=== PATIENT | female | born 1960 | race Caucasian/White ===

== ENCOUNTER 2018-05-29 08:17 | Outpatient (CLI) | payer BC ==
[2018-05-29 09:31] LABS: #Eosinphils 0.3 thou/uL (0.0-0.7); #Lymphocytes 1.7 thou/uL (1.20-3.40); #Monocytes 0.4 thou/uL (0.11-0.59); #Neutrophils 2.5 thou/uL (1.40-6.50); %Basophils 0.8 % (0.0-1.0); %Eosinophils 6.2 % (0.0-10.0); %Lymphocytes 35.5 % (21.0-51.0); %Monocytes 7.3 % (0.0-10.0); %Neutrophils 50.3 % (42.0-75.0); Hemoglobin 14.8 g/dL (12.0-16.0); Mean Corpuscular HGB CONC 32.5 g/dL (32.0-36.0); Mean Platelet Volume 7.8 fL (7.4-10.4); Platelet Count 215 thou/uL (130-400); RBC Distribution Width 10.9 % (11.5-14.5); Red Blood Cell (RBC) Count 4.49 mill/uL (4.20-5.40); White Blood Cell (WBC) Count 4.9 thou/uL (4.8-10.8)
== END 2018-05-29 08:18 | disposition home or self-care (01) ==
LOC: LABBT 08:17
PROVIDERS: ATTEND Orthopaedic Surgery
DX: Z01.818 Encounter for other preprocedural examination (principal); S83.241A Other tear of medial meniscus, current injury, right knee, initial encounter
CPT/HCPCS: 85025; 93005; 93010

== ENCOUNTER 2018-05-30 05:46 | Day surgery (SDC) | payer BC ==
--- NOTE | 2018-05-29 08:26 | HP ---
HISTORY OF PRESENT ILLNESS: The patient is a 58-year-old female with a several year history of diffi culty with her right knee which has become worse over the past several months. There has been no spe cific injury. She describes pain and intermittent popping. Her symptoms are worse with prolonged si tting and ambulation. She has had persistent symptoms despite rest, restriction of activities, use o f anti-inflammatory medications including naproxen and Meloxicam and a previous cortisone injection. PAST MEDICAL HISTORY: The patient is otherwise in good health, has no major medical problems. ALLERGIES: She has no known allergies. PHYSICAL EXAMINATION: GENERAL: Reveals a healthy female. HEENT: Unremarkable. NECK: Supple. CHEST: Clear. HEART: Regular rate and rhythm. ABDOMEN: Soft, nontender. PELVIC/RECTAL/BREAST: Exams are deferred. EXTREMITIES: Pertinent findings are related to the right knee. There is no definite effusion. Ther e is normal alignment. There is tenderness over the medial joint line. Range of motion is 0-135 deg shanelle. There is pain with attempted Koko's maneuver. There is no instability. Neurovascular exa m is intact. LABORATORY AND X-RAY FINDINGS: X-rays of the right knee reveal minimal degenerative changes. MRI sc an of the right knee reveals a complex tear of the posterior horn of the medial meniscus and degenera tive changes of the patella. IMPRESSION: Internal derangement of right knee with medial meniscal tear, possible component of dege nerative joint disease. PLAN: Arthroscopy right knee with possible medial meniscectomy and/or debridement and shaving. The nature of the surgery, length of recovery, and potential complications such as infection, loss of mot ion, incomplete relief, neurovascular injury, thromboembolic phenomena, possible post-traumatic degen erative arthritis, recurrent tear and need for additional treatment or repeat surgery have been discu ssed in detail.
[2018-05-29 08:28] VITALS: BMI 28.8
[2018-05-30] MEDS ORDERED: CEFAZOLIN/Water 2 GM/20 ML SYRINGE ONE (06:16)
[2018-05-30] MEDS ORDERED: Bupivacaine HCl 0.5%/Epinephrine 1:200,000/PF 30 ml Vial ONE (07:13)
[2018-05-30] MEDS ORDERED: Fentanyl 100 MCG/2 ML VIAL ONE (07:45)
[2018-05-30] MEDS ORDERED: HYDROcodone/Acetaminophen 5/325 mg Tablet ONE (09:03)
[2018-05-30] MEDS ORDERED: Morphine 2 MG/ML SYRINGE ONE (09:03)
--- NOTE | 2018-05-30 09:32 | OP ---
DATE OF PROCEDURE: 05/30/2018 SURGEON: Jean Montejo M.D. ANESTHESIA: General. PREOPERATIVE DIAGNOSIS: Medial meniscal tear and degenerative joint disease, right knee. POSTOPERATIVE DIAGNOSIS: Medial meniscal tear and degenerative joint disease, right knee, plus later al meniscal tear. PROCEDURE PERFORMED: Arthroscopy right knee with partial medial and lateral meniscectomies. OPERATIVE FINDINGS: Examination under anesthesia revealed the knee to be stable. At arthroscopy, th ere was moderate effusion. There was grade II and grade III changes of the central and lateral avila lar facet. No areas of exposed bone. Examination of the medial compartment revealed some diffuse gr camryn II changes and early grade III changes in the weightbearing surface of medial femoral condyle, bu t no areas of exposed bone. There was a complex tear of the posterior horn of the medial meniscus ex tending into the meniscal root. ACL was intact. There is some small area of grade 2 and 3 change wi th a late weightbearing surface of lateral femoral condyle and a small radial tear in the mid portion of the body of the lateral meniscus, but the bulk of the meniscus was intact. NARRATIVE REPORT: After satisfactory anesthesia was induced in supine position, the patient was plac ed in a leg meredith and prepped and draped in routine manner. Right leg was elevated, exsanguinated w ith an Esmarch bandage, and the tourniquet inflated to 300 mmHg. Jef arthroscope was introduced into the anterolateral portal, probe through inferomedial portal, and the inflow and outflow accompli shed through the scope and the Hazard arthroscopy pump. Arthroscopy was carried out and the above f indings were noted. All findings were documented with the video printer and hard copies were made. Medial femoral condyle was debrided with a motorized shaver. Medial meniscus was debrided with the u se of basket forceps and motorized shaver and the remaining rim balanced and probed and found to be s table. There was still intact rim of 4-5 mm. There is some small area of chondromalacia of the late ral femoral condyle and the lateral meniscal tear were debrided with a motorized shaver. The scope w as then introduced into the anteromedial portal and all compartments visualized and no additional pat hology found. The knee was copiously irrigated through the scope and all instruments were withdrawn. A 20 mL of 0.5% Marcaine with epinephrine was instilled into the knee joint and an additional 10 mL injected about the portal sites. The portal sites were closed with 3-0 nylon. A sterile bulky comp ressive dressing was applied and the tourniquet deflated after 23 minutes. The foot promptly pinked up. The patient was awakened, taken to recovery room in stable condition. There were no apparent in traoperative complications. The estimated blood loss was negligible. The patient will be discharged home in satisfactory condition and she was instructed on ice, elevatio n, use of crutches, and home exercise program by the Physical Therapy Department. She was given writ ten wound care instructions and prescription for [place] 7.5 for pain, 40 tablets. She will be recheck ed in my office in 10-14 days or sooner if there any problems prior to that time.
[2018-05-30] MEDS ORDERED: Ondansetron HCl/PF 4 MG/2 ML Vial ONE (17:11)
[2018-05-30] MEDS ORDERED: Ketorolac Tromethamine 30 MG/ML VIAL ONE (17:11)
[2018-05-30] MEDS ORDERED: PROPOFOL 200 MG/20 ML VIAL ONE (17:11)
[2018-05-30] MEDS ORDERED: Lidocaine 1% PF 5 ML VIAL ONE (17:11)
== END 2018-05-30 11:08 | disposition home or self-care (01) ==
LOC: SDC 05:46
PROVIDERS: ATTEND Orthopaedic Surgery
PROC: 0SBC4ZZ Excision of Right Knee Joint, Percutaneous Endoscopic Approach (ICD-10-PCS; principal; 2018-05-30)
DX: M23.321 Other meniscus derangements, posterior horn of medial meniscus, right knee (principal); M23.300 Other meniscus derangements, unspecified lateral meniscus, right knee
CPT/HCPCS: 96374; G8978-GP-CJ; G8979-GP-CJ; G8980-GP-CJ; J0670; J1885; J2001; J2270; J2405; J2704; J3010